=== PATIENT | male | born 1965 | race Caucasian/White ===

== ENCOUNTER 2019-05-07 10:27 | Emergency (ER) | payer SELFPAY ==
[~2019-05-07] VITALS: Ht 177.8 cm; Wt 93.5 kg
[~2019-05-07 10:27] MED LIST: TNFMISC
[2019-05-07] MEDS ORDERED: UNK HTN MED PO (10:32)
[2019-05-07 13:09] VITALS: BP 128/74
== END 2019-05-07 13:11 | disposition home or self-care (01) ==
LOC: EMS 10:28
DX: R76.11 Nonspecific reaction to tuberculin skin test without active tuberculosis (principal); F31.9 Bipolar disorder, unspecified; I10 Essential (primary) hypertension; F41.9 Anxiety disorder, unspecified; F17.210 Nicotine dependence, cigarettes, uncomplicated